=== PATIENT | female | born 1935 | race Caucasian/White ===

== ENCOUNTER 2016-06-30 14:30 | Inpatient (IN) | payer MEDICARE, OTHER ==
--- NOTE | ~2016-06-30 | EGD ---
EGD REPORT [facility] [address] [place]. [address] NAME: MEAGHAN SIMS : 37 STATUS : ADM IN PAT#: [id number] AGE: 80 ADM/REG DATE : 07/01/16 MR#: [id number] REPORT SERV DATE: 07/02/16 DICTATED BY: VITALIY LOPEZ DATE: 07/02/16 REPORT STATUS : Draft TRANSCRIBED BY: [facility] DATE: 07/02/16 Endoscopy Center Patient Name: Meaghan Sims Date of : 1935 Attending MD: VITALIY LOPEZ MD Procedure Date No Time: 07/02/2016 Procedure: Upper GI endoscopy Indications: Heme positive stool Referring MD: KIMBERLY WARNER JR Medicines: Monitored Anesthesia Care Complications: No immediate complications. Estimated blood loss: Minimal. Procedure: Pre-Anesthesia Assessment: - ASA Grade Assessment: II - A patient with mild systemic disease. After obtaining informed consent, the endoscope was passed under direct vision. Throughout the procedure, the patient's blood pressure, pulse, and oxygen saturations were monitored continuously. The GIF [id number] was introduced through the mouth, and advanced to the second part of duodenum. The upper GI endoscopy was accomplished without difficulty. The patient tolerated the procedure well. Findings: No gross lesions were noted in the entire esophagus. Multiple small sessile polyps with no bleeding and no stigmata of recent bleeding were found in the gastric fundus and in the gastric body. Biopsies were taken with a cold forceps for histology. Estimated blood loss was minimal. Few small non-bleeding superficial gastric ulcers with no stigmata of bleeding were found in the gastric antrum. Biopsies were taken with a cold forceps for Helicobacter pylori testing. Estimated blood loss was minimal. Few non-bleeding superficial duodenal ulcers with no stigmata of bleeding were found in the duodenal bulb and in the first part of the duodenum. Biopsies were taken with a cold forceps for histology. Estimated blood loss was minimal. The cardia and gastric fundus were normal on retroflexion. The exam was otherwise without abnormality. Impression: - Multiple gastric polyps. Biopsied. - Small gastric ulcers with clean base. Biopsied. - Multiple shallow duodenal ulcers with clean base. Biopsied. EGD REPORT [address] [address] NAME: MEAGHAN SIMS : 37 STATUS : ADM IN [facility]#: [id number] AGE: 80 ADM/REG DATE : 07/01/16 MR#: [id number] REPORT SERV DATE: 07/02/16 DICTATED BY: VITALIY LOPEZ DATE: 07/02/16 REPORT STATUS : Draft TRANSCRIBED BY: [employer] DATE: 07/02/16 - The examination was otherwise normal. Recommendation: - Return patient to hospital [facility] for ongoing care. - Clear liquid diet. - No aspirin, ibuprofen, naproxen, or other non-steroidal anti-inflammatory drugs. - Use Protonix (pantoprazole) 40 mg PO BID for 6 weeks. - Await pathology results. Procedure Code(s): --- Professional --- 71076, Esophagogastroduodenoscopy, flexible, transoral; with biopsy, single or multiple Diagnosis Code(s): --- Professional --- K31.7, Polyp of stomach and duodenum K25.9, Gastric ulcer, unspecified as acute or chronic, without hemorrhage or perforation K26.9, Duodenal ulcer, unspecified as acute or chronic, without hemorrhage or perforation R19.5, Other fecal abnormalities CPT copyright 2013 [employer]. All rights reserved. The codes documented in this report are preliminary and upon metal machinist review may be revised to meet current compliance requirements. Vitaliy Lopez MD VITALIY LOPEZ MD 07/02/2016 8:14 AM This report has been signed electronically. Number of Addenda: 0 Note Initiated On: 07/02/2016 7:38 AM Scope Withdrawal Time 0 hours 0 minutes 0 seconds [address] [address]
--- NOTE | ~2016-06-30 | DS ---
Discharge Summary [facility] [address] [place]. [address] NAME: CLEMENTINE BEAVER : 37 STATUS : ADM IN PAT#: [id number] AGE: 80 ADM/REG DATE : 07/01/16 MR#: [id number] REPORT SERV DATE: 07/05/16 DICTATED BY: JACKIE ALEMAN DATE: 07/05/16 REPORT STATUS : Draft TRANSCRIBED BY: YARI DATE: 07/05/16 ADMISSION DATE: 07/01/2016 DISCHARGE DATE: DIAGNOSES: 1. Gastrointestinal bleed. 2. Acute blood loss anemia secondary to gastrointestinal bleed. 3. Peptic ulcer disease. 4. Osteoarthritis with right hip pain. 5. Hypertension. 6. Debility. FOLLOWUP: The patient should follow up with her primary care physician in one to two weeks after rehab and to follow up with Dr. Greer, GI physician, in three to four weeks. PROCEDURES: EGD with multiple gastric polyps biopsied. Small gastric ulcers with clean base and multiple shallow duodenal ulcers with clean base. DISCHARGE MEDICATIONS: Caltrate + D 600 mg p.o. daily; Imdur ER 60 mg p.o. daily, hold for systolic pressures less than 130; Protonix 40 mg p.o. b.i.d. for six weeks per GI; hydralazine 25 mg p.o. t.i.d., hold for systolic pressure less than 120; Montara 5/325 one tab p.o. q.4 hours p.r.n.; Zofran 4 mg p.o. q.4 hours p.r.n.; tramadol 50 mg p.o. q.6 hours p.r.n.; Voltaren gel topically to right femur q.6 hours p.r.n. HOSPITALISTS: Dr. José Miguel Jay, Dr. Martell, and Dr. Aleman. HOSPITAL COURSE: A 80 years old female with a past medical history of osteoporosis and osteoarthritis, who presented with a two- to three-week history of right hip pain that radiated to her right knee. She denied any erythema. No fever or chills. No new rashes. She was worked up at [facility], for which the patient underwent a CAT scan that was unremarkable. Therefore, she presented to [facility] ER for unresolved symptoms and found to have a hemoglobin of 8.0, lower than her baseline. The patient was taking multiple anti- inflammatories orally for her pain. She was admitted to the Hospitalist Service and cared for by Dr. Martell initially with a GI consultation for acute blood loss anemia secondary to GI loss. The patient did require approximately 2 units of packed red blood cells during her hospital course. She did not have any complaints of abdominal pain. She did continue to have right femur pain, for which she did have a repeat CT at that point that only revealed some mild right hip joint narrowing with degenerative joint disease. There were no signs of fracture. No osteonecrosis. Also, there was no fracture of the femur. Had some signs of osteoarthritis. The patient was treated supportively. She did have some improvement at discharge and able to ambulate, but still requiring pain medications at the time of discharge. The patient also was educated on refraining from oral anti- inflammatories due to her peptic ulcer disease. Also, the patient required management for hypertension. Blood pressure was better improved at the time of discharge. Also, hemoglobin was 10.4 at the time of discharge. The patient should follow up with her primary care physician and GI as an outpatient. The patient was clinically stable for discharge. Discharge Summary [address] [address] NAME: CLEMENTINE BEAVER : 37 STATUS : ADM IN [facility]#: [id number] AGE: 80 ADM/REG DATE : 07/01/16 MR#: [id number] REPORT SERV DATE: 07/05/16 DICTATED BY: JACKIE ALEMAN DATE: 07/05/16 REPORT STATUS : Draft TRANSCRIBED BY: YARI DATE: 07/05/16 [facility] MARYVALE/YARI Jackie Aleman M.D. / [id number] CC: Arabella Soliman Jr., M.D. William M. Cooney, MD
--- NOTE | ~2016-06-30 | CN ---
Consultation Report [facility] [id number] [place]. [address] NAME: MEAGHAN SIMS : 37 STATUS : ADM IN PAT#: [id number] AGE: 80 ADM/REG DATE : 07/01/16 MR#: [id number] REPORT SERV DATE: 07/02/16 DICTATED BY: QUYEN DELGADO DATE: 07/01/16 REPORT STATUS : Draft TRANSCRIBED BY: MODL DATE: 07/01/16 CONSULTATION NOTE DATE OF CONSULTATION: REASON FOR CONSULTATION: Anemia and heme-positive stool. HISTORY OF PRESENT ILLNESS: The patient is Ms. Meaghan Sims who is a 80-year-old white female, who has not been seen by primary care doctor in years, has actually had complaints of right lower extremity pain and that caused her to come to the emergency room. She was evaluated and found to be severely anemic. We are asked to see her in consultation and apparently is Hemoccult positive also. The patient denies any melena, hematochezia, has noted back pain and also right lower extremity pain. She was found to be Hemoccult positive. She does take aspirin and has also been taken ibuprofen. PAST MEDICAL HISTORY: Includes osteoporosis. PAST SURGICAL HISTORY: Includes kyphoplasty, corneal transplant, and cataract surgery. FAMILY HISTORY: Noncontributory. REVIEW OF SYSTEMS: A 10-point review of systems otherwise negative. MEDICATIONS: Aspirin, Biotin, calcium, gluten, and tramadol. ALLERGIES: AMOXICILLIN. HABITS: No drugs, alcohol, or tobacco. PHYSICAL EXAMINATION: HEENT: Normocephalic, atraumatic. Extraocular muscles are intact. HEART: Regular without murmur. LUNGS: Clear to auscultation bilaterally without rales or rhonchi. ABDOMEN: Soft, nontender, and nondistended. Normoactive bowel sounds present. EXTREMITIES: No cyanosis or clubbing. There is little bit edema. LABORATORY DATA: Sodium 135, potassium 4.4, chloride 96, CO2 is 29, BUN 20, creatinine 1.1, glucose 134, LFTs normal. Iron levels were normal. White count 5.7, hemoglobin 7.6, hematocrit 23, platelet count 157, MCV is 104. IMPRESSION: 1. Macrocytic anemia. 2. Heme-positive stool. Consultation Report [facility] [address] [place]. [address] NAME: MEAGHAN SIMS : 37 STATUS : ADM IN PAT#: [id number] AGE: 80 ADM/REG DATE : 07/01/16 MR#: [id number] REPORT SERV DATE: 07/02/16 DICTATED BY: QUYEN DELGADO DATE: 07/01/16 REPORT STATUS : Draft TRANSCRIBED BY: MODL DATE: 07/01/16 3. Right lower extremity pain. RECOMMENDATION: 1. Monitor hemoglobin and hematocrit. 2. Transfuse as needed. Transfusion parameters will be written. 3. Check B12 and folate level. PLAN: Panendoscopy, on aspirin, NSAIDs, and heme-positive. Risks and benefits of EGD as well as possible complications of bleeding, infection, perforation, or allergic reaction to the medicine were described. Questions entertained and answered. The patient understands and agrees to proceed. ROSA/YARI Quyen Delgado M.D. / [id number] CC: Arabella Blake Jr., M.D.
--- NOTE | ~2016-06-30 | HP ---
History And Physical [facility] [address] [facility] [address] [place]. [address] NAME: CLEMENTINE SIMS : 37 STATUS : ADM Emery PAT#: [id number] AGE: 80 ADM/REG DATE : 06/30/16 MR#: [id number] REPORT SERV DATE: 06/30/16 DICTATED BY: QUYEN DUNN DATE: 06/30/16 REPORT STATUS : Draft TRANSCRIBED BY: MODRegla DATE: 06/30/16 DATE OF ADMISSION: 06/30/2016 POINT OF ENTRY: [facility] Emergency Department. CHIEF COMPLAINT: Right hip pain. HISTORY OF PRESENT ILLNESS: Ms. Sims is a 80-year-old female with no significant previous medical history other than osteoarthritis and osteoporosis, who presents to the emergency department today with progressive worsening right hip pain with radiation to her knee. The patient states that for the past two to three weeks she has had progressive worsening right hip pain with radiation to her knee. The pain is primarily located over the lateral aspect of her upper thigh and it radiates to her knee. It is not tender on palpation or tender with rest. It is mainly noted with ambulation or movement of the right lower extremity. The patient also occasionally will notice that some of the pain will radiate to her lower back as well as her left hip region. She was seen at [facility] Emergency Department last Saturday night where she reportedly underwent a CT scan that was largely unremarkable except for some diverticulosis and was discharged home on Flexeril, Lortab, as well as naproxen. The patient states that these medications were not working, so she sought Mr. Morales in clinic sometime this week and was given a prescription for tramadol. Initial evaluation in the emergency department notable for a plain films of the hip that were largely unremarkable. Labs notable for hemoglobin of 8.0, occult stool was positive. She was subsequently admitted to the Hospitalist Service for further evaluation and management. She denies any history of GI bleed in the past. Last GI evaluation was a flex sig about 13 years ago and reportedly was unremarkable. She denies any history of melena, hematochezia, hemoptysis, or hematemesis. She does take aspirin at home on a regular basis as well as has been taking some high dose ibuprofen as well as the prescribed naproxen for the past two to three weeks for this above-mentioned hip pain. REVIEW OF SYSTEMS: Comprehensive review of systems otherwise negative unless listed in history of present illness. PREVIOUS MEDICAL HISTORY: 1. Osteoarthritis. 2. Osteoporosis. SURGICAL HISTORY: 1. Kyphoplasty this past Saturday at an outpatient [facility] here in [place]. 2. Corneal transplant. History And Physical [facility] [address] [place]. [address] NAME: CLEMENTINE SIMS : 37 STATUS : ADM Emery PAT#: [id number] AGE: 80 ADM/REG DATE : 06/30/16 MR#: [id number] REPORT SERV DATE: 06/30/16 DICTATED BY: QUYEN DUNN DATE: 06/30/16 REPORT STATUS : Draft TRANSCRIBED BY: YARI DATE: 06/30/16 3. Cataract surgery. 4. Ankle fibroid tumor removal. ALLERGIES: AMOXICILLIN. HOME MEDICATIONS: 1. Aspirin 81 mg every other day. 2. Biotin 1 tab daily. 3. Os-Cristóbal with vitamin D 500 mg daily. 4. Lutein 1 tab daily. 5. Tramadol 50 mg q.6 hours p.r.n. SOCIAL HISTORY: Denies any tobacco, alcohol, or illicits. FAMILY MEDICAL HISTORY: Mother with history of congestive heart failure. Father with prostate cancer. Sibling with diabetes. LABS AND IMAGIN. White count 5.7, hemoglobin is 8.0, hematocrit 24.5, platelet count is 157, MCV is 103.8. 2. Sodium is 135, potassium 3.9, chloride 96, carbon dioxide 28, BUN 20, creatinine 0.98, glucose is 94, calcium is 9.1, protein 7.9, albumin 3.0, bilirubin is 0.4, ALT is 18, AST 26, and alkaline phosphatase is 76. 3. CRP is 11.7. 4. Occult stool is positive. 5. EKG per my review is normal sinus rhythm with no evidence of any acute ischemia or infarction. Does show early LVH changes. PHYSICAL EXAMINATION: VITAL SIGNS: Temperature is 98.6 degrees Fahrenheit, pulse is 66, respirations 16, saturating 94% on room air. Blood pressure 164/65. GENERAL: The patient is awake, alert, in no acute distress. Resting comfortably in bed. She is a well-developed, well-nourished, elderly female. HEENT: Atraumatic and normocephalic. Moist mucous membranes. Pupils are equal, round, and reactive to light and accommodation. Extraocular eye movements are intact. No scleral icterus. She does have some pale oral mucosa and conjunctival mucosa. NECK: No jugular venous distention or carotid bruits. CARDIAC: Regular rate and rhythm. No murmurs or gallops. Normal S1, S2. LUNGS: Clear to auscultation bilaterally. No wheezes, rhonchi, or crackles. ABDOMEN: Soft, nontender, nondistended. Good bowel sounds. No rebound, guarding, or rigidity. EXTREMITIES: Warm, perfused. No cyanosis, clubbing, or edema. MUSCULOSKELETAL: There is no tenderness on palpation over the right hip joint or the right knee. There is no palpable effusion either. Strength is intact in the right lower extremity. SKIN: Warm and dry. PSYCH: Affect appropriate. History And Physical [address] [address] NAME: CLEMENTINE SIMS : 37 STATUS : ADM Emery PAT#: [id number] AGE: 80 ADM/REG DATE : 06/30/16 MR#: [id number] REPORT SERV DATE: 06/30/16 DICTATED BY: QUYEN DUNN DATE: 06/30/16 REPORT STATUS : Draft TRANSCRIBED BY: YARI DATE: 06/30/16 NEURO: Alert and oriented x3. Cranial nerves 2 through 12 grossly intact. Speech is normal. Gait not assessed. ASSESSMENT: Ms. Sims is a 80-year-old female who presents with a two to three-week history of progressive worsening right hip pain with radiation to the knee who incidentally is also found to have anemia with an occult positive stool. PROBLEM LIST: 1. Right hip pain, likely iliotibial band syndrome. 2. Anemia. 3. Occult positive stool. PLAN: 1. Anemia. We have no prior baseline for comparison, but she does have occult positive stools likely secondary to her aspirin as well as recent NSAID use. We will discontinue all these medications. Place the patient on a Protonix drip. Check q.6 hours hemoglobin and hematocrits. Transfuse if hemoglobin less than 7. We will consult Gastroenterology for further evaluation. 2. Right hip pain. Based on description of symptoms as well as examination, I suspect patient has IT band syndrome, which we will treat here with low-dose narcotics as she is unable to take any anti-inflammatory secondary to GI bleed. The patient does have an orthopedic surgeon in the community, Dr. Haynes, who performed her kyphoplasty earlier this week. She also recently had CT evaluation of the hip region at [facility], which we will try to obtain those records. I think that further workup and treatment can be deferred to the patient's primary orthopedic surgeon upon discharge. 3. DVT prophylaxis. STEPHANIE's and SCD's given occult positive stool. CODE STATUS: The patient wished to be full code. JCB/MODL Quyen Dunn MD / [id number] CC: MD Nolberto Miller Jr., M.D.
[2016-06-30 15:56] LABS: HEMATOCRIT 24.3 % (36.0-48.0); MEAN CORPUS HGB CONC 32.9 g/dL (32.0-36.0); MEAN CORPUSCULAR HEMOGLOB 34.2 pg (26.0-34.0); MEAN CORPUSCULAR VOLUME 103.8 fL (80-100); MEAN PLATELET VOLUME 9.2 fL (9.2-13.0); PLATELET COUNT 157 10/3/uL (150-400); RBC DISTRIBUTION WIDTH 16.1 % (12.0-16.0); RED CELL COUNT 2.34 10/6/uL (4.0-5.6); WHITE BLOOD CELLS 5.7 10/3/uL (4.5-10.5)
[2016-06-30 16:07] LABS: C-REACTIVE PROTEIN 11.7 MG/L (<8.0)
[2016-06-30 16:50] LABS: DIFFERENTIAL ORDERED N
[2016-06-30 19:55] LABS: A/G RATIO 0.6 (0.7-1.9); ALKALINE PHOSPHATASE 76 U/L (45-117); BUN (BLOOD UREA NITROGEN) 20 MG/DL (6-23); CALCIUM, SERUM 9.1 MG/DL (8.5-10.4); CHLORIDE, SERUM 96 MMOL/L (96-112); CO2 (CARBON DIOXIDE) 28 MMOL/L (24-34); CREATININE 0.98 MG/DL (0.55-1.02); GFR AFRICAN AMERICAN 64 ML/MIN (>=60); GFR NON AFRICAN AMERICAN 55 ML/MIN (>=60); GLOBULIN 4.8 G/DL (2.5-4.1); GLUCOSE, SERUM 94 MG/DL (60-99); POTASSIUM, SERUM 3.9 MMOL/L (3.5-5.3); SGOT(AST) 26 U/L (5-40); SGPT(ALT) 18 U/L (5-65); SODIUM, SERUM 135 MMOL/L (135-148); TOTAL BILIRUBIN 0.4 MG/DL (0-1.2); TOTAL PROTEIN 7.8 G/DL (6.0-8.5)
[2016-06-30] MEDS ORDERED: OS500+D PO (20:51)
[2016-06-30] MEDS ORDERED: HALF81 PO (20:51)
[2016-06-30] MEDS ORDERED: HARD NAILS PO (20:51)
[2016-06-30] MEDS ORDERED: ULTRAM50 PO (20:51)
[2016-06-30] MEDS ORDERED: LUTEIN PO (20:51)
[2016-06-30 22:07] LABS: INTERNATIONAL NORMAL RATI 1.3 UNITS (-); PARTIAL THROMBO TIME 31.2 SEC (22.5-37.2); PROTIME (NOT ORD) 16.1 SEC (12.0-14.5)
[2016-07-01 01:35] LABS: HEMATOCRIT 23.9 % (36.0-48.0)
[2016-07-01 01:58] LABS: A/G RATIO 0.6 (0.7-1.9); ALBUMIN 2.8 G/DL (3.5-5.0); ALKALINE PHOSPHATASE 72 U/L (45-117); BUN (BLOOD UREA NITROGEN) 20 MG/DL (6-23); CHLORIDE, SERUM 96 MMOL/L (96-112); CO2 (CARBON DIOXIDE) 29 MMOL/L (24-34); FERRITIN 354 NG/ML (8-252); FREE T4 1.25 NG/DL (0.76-1.46); GFR AFRICAN AMERICAN 56 ML/MIN (>=60); GFR NON AFRICAN AMERICAN 48 ML/MIN (>=60); GLOBULIN 4.5 G/DL (2.5-4.1); IRON BINDING CAPACITY 307 MCG/DL (225-410); IRON, SERUM 48 MCG/DL (35-150); POTASSIUM, SERUM 4.4 MMOL/L (3.5-5.3); SGOT(AST) 24 U/L (5-40); SGPT(ALT) 16 U/L (5-65); SODIUM, SERUM 135 MMOL/L (135-148); TOTAL BILIRUBIN 0.5 MG/DL (0-1.2); TOTAL PROTEIN 7.3 G/DL (6.0-8.5); ULTRASENSITIVE TSH 0.987 MCIU/ML (0.358-3.740)
[2016-07-01 01:59] LABS: GLUCOSE, SERUM 134 MG/DL (60-99)
[2016-07-01 07:41] LABS: HEMATOCRIT 23.5 % (36.0-48.0); HEMOGLOBIN 7.9 g/dL (12.0-16.0)
[2016-07-01 15:27] LABS: HEMOGLOBIN 7.6 g/dL (12.0-16.0)
[2016-07-01 15:57] LABS: FOLATE 16.9 NG/ML (>5.2)
[2016-07-01 21:25] LABS: ASCORBIC ACID (UR NOT ORDER) NEG (NEG); BILIRUBIN, URINE NEGATIVE (NEG); KETONE, URINE NEGATIVE (NEG); LEUKOCYTE ESTERASE(NOT OR TRACE (NEG); WBC (NOT ORDERED) (RFLEX) 4 (0-5)
[2016-07-02 10:50] LABS: BASOPHILS 0.3 %; BASOPHILS ABSOLUTE 0.02 10/3/uL (0.0-0.16); EOSINOPHILS 0.3 %; EOSINOPHILS ABSOLUTE 0.02 10/3/uL (0.0-0.53); IMMATURE GRANULOCYTES 0.8 %; IMMATURE GRANULOCYTES ABSOLUTE 0.05 10/3/uL (0.0-0.11); INTERNATIONAL NORMAL RATI 1.2 UNITS (-); LYMPHOCYTES 19.1 %; LYMPHOCYTES ABSOLUTE 1.23 10/3/uL (0.67-4.30); MEAN CORPUS HGB CONC 34.3 g/dL (32.0-36.0); MEAN CORPUSCULAR HEMOGLOB 32.6 pg (26.0-34.0); MEAN PLATELET VOLUME 10.6 fL (9.2-13.0); MONOCYTES 11.8 %; MONOCYTES ABSOLUTE 0.76 10/3/uL (0.21-1.20); NEUTROPHILS 67.7 %; NEUTROPHILS ABSOLUTE 4.36 10/3/uL (2.02-8.40); PARTIAL THROMBO TIME 29.8 SEC (22.5-37.2); PLATELET COUNT 136 10/3/uL (150-400); PROTIME (NOT ORD) 15.5 SEC (12.0-14.5); RBC DISTRIBUTION WIDTH 18.8 % (12.0-16.0); WHITE BLOOD CELLS 6.4 10/3/uL (4.5-10.5)
[2016-07-02 10:51] LABS: HEMOGLOBIN 10.3 g/dL (12.0-16.0); RED CELL COUNT 3.16 10/6/uL (4.0-5.6)
[2016-07-02 10:52] LABS: MANUAL DIFF NO %; MEAN CORPUSCULAR VOLUME 94.9 fL (80-100)
[2016-07-02 13:00] LABS: BUN (BLOOD UREA NITROGEN) 20 MG/DL (6-23); CALCIUM, SERUM 8.7 MG/DL (8.5-10.4); CHLORIDE, SERUM 101 MMOL/L (96-112); CO2 (CARBON DIOXIDE) 27 MMOL/L (24-34); CREATININE 1.05 MG/DL (0.55-1.02); GFR AFRICAN AMERICAN 59 ML/MIN (>=60); GFR NON AFRICAN AMERICAN 51 ML/MIN (>=60); POTASSIUM, SERUM 3.9 MMOL/L (3.5-5.3); SODIUM, SERUM 136 MMOL/L (135-148)
[2016-07-02 13:04] LABS: GLUCOSE, SERUM 105 MG/DL (60-99)
[2016-07-03 06:14] LABS: BASOPHILS 0.2 %; BASOPHILS ABSOLUTE 0.01 10/3/uL (0.0-0.16); EOSINOPHILS 1.4 %; EOSINOPHILS ABSOLUTE 0.08 10/3/uL (0.0-0.53); HEMATOCRIT 30.2 % (36.0-48.0); HEMOGLOBIN 10.4 g/dL (12.0-16.0); IMMATURE GRANULOCYTES 1.4 %; IMMATURE GRANULOCYTES ABSOLUTE 0.08 10/3/uL (0.0-0.11); LYMPHOCYTES 22.7 %; LYMPHOCYTES ABSOLUTE 1.34 10/3/uL (0.67-4.30); MANUAL DIFF NO %; MEAN CORPUS HGB CONC 34.4 g/dL (32.0-36.0); MEAN CORPUSCULAR HEMOGLOB 33.9 pg (26.0-34.0); MEAN CORPUSCULAR VOLUME 98.4 fL (80-100); MEAN PLATELET VOLUME 9.9 fL (9.2-13.0); MONOCYTES 11.2 %; MONOCYTES ABSOLUTE 0.66 10/3/uL (0.21-1.20); NEUTROPHILS 63.1 %; NEUTROPHILS ABSOLUTE 3.73 10/3/uL (2.02-8.40); PLATELET COUNT 147 10/3/uL (150-400); RBC DISTRIBUTION WIDTH 18.3 % (12.0-16.0); RED CELL COUNT 3.07 10/6/uL (4.0-5.6); WHITE BLOOD CELLS 5.9 10/3/uL (4.5-10.5)
[2016-07-03 06:22] LABS: BUN (BLOOD UREA NITROGEN) 15 MG/DL (6-23); CHLORIDE, SERUM 98 MMOL/L (96-112); CO2 (CARBON DIOXIDE) 27 MMOL/L (24-34); CREATININE 0.94 MG/DL (0.55-1.02); GFR AFRICAN AMERICAN 67 ML/MIN (>=60); GFR NON AFRICAN AMERICAN 58 ML/MIN (>=60); GLUCOSE, SERUM 79 MG/DL (60-99); POTASSIUM, SERUM 3.6 MMOL/L (3.5-5.3); SODIUM, SERUM 135 MMOL/L (135-148)
[2016-07-04 07:08] LABS: BUN (BLOOD UREA NITROGEN) 15 MG/DL (6-23); CALCIUM, SERUM 8.6 MG/DL (8.5-10.4); CHLORIDE, SERUM 97 MMOL/L (96-112); CO2 (CARBON DIOXIDE) 23 MMOL/L (24-34); CREATININE 0.76 MG/DL (0.55-1.02); GFR AFRICAN AMERICAN 87 ML/MIN (>=60); GFR NON AFRICAN AMERICAN 75 ML/MIN (>=60); GLUCOSE, SERUM 90 MG/DL (60-99); POTASSIUM, SERUM 3.9 MMOL/L (3.5-5.3); SODIUM, SERUM 131 MMOL/L (135-148)
[2016-12-20] MEDS ORDERED: PRIN20 PO (22:35)
[2016-12-20] MEDS ORDERED: REVLIMID10 MG PO (22:35)
[2016-12-20] MEDS ORDERED: PCET PO (22:36)
[2016-12-20] MEDS ORDERED: OXYCON10 PO (22:36)
[2016-12-20] MEDS ORDERED: BUSPAR5 PO (22:36)
[2016-12-20] MEDS ORDERED: PROTONIX PO (22:37)
[2016-12-20] MEDS ORDERED: VOLTAREN1 % TOP (22:37)
[2016-12-20] MEDS ORDERED: MULTIVIT/MIN PO (22:37)
== END 2016-07-05 22:15 | disposition home or self-care (01) | DRG 378 ==
LOC: ER 14:30 → CDU1 21:36 → 5NO 22:01
PROVIDERS: Emergency Medicine; Internal Medicine; Internal Medicine Gastroenterology; Physician Assistant
PROC: 0DB98ZX Excision of Duodenum, Via Natural or Artificial Opening Endoscopic, Diagnostic (ICD-10-PCS; 2016-07-02)
PROC: 30233N1 Transfusion of Nonautologous Red Blood Cells into Peripheral Vein, Percutaneous Approach (ICD-10-PCS; 2016-07-02)
PROC: 0DB68ZX Excision of Stomach, Via Natural or Artificial Opening Endoscopic, Diagnostic (ICD-10-PCS; principal; 2016-07-02 07:56)
DX: K92.2 Gastrointestinal hemorrhage, unspecified (principal); D62 Acute posthemorrhagic anemia; K25.9 Gastric ulcer, unspecified as acute or chronic, without hemorrhage or perforation; M76.31 Iliotibial band syndrome, right leg; K26.9 Duodenal ulcer, unspecified as acute or chronic, without hemorrhage or perforation; M19.90 Unspecified osteoarthritis, unspecified site; Z88.1 Allergy status to other antibiotic agents; Z79.82 Long term (current) use of aspirin; Z79.899 Other long term (current) drug therapy; Z82.49 Family history of ischemic heart disease and other diseases of the circulatory system; Z80.42 Family history of malignant neoplasm of prostate; Z83.3 Family history of diabetes mellitus; K31.7 Polyp of stomach and duodenum; M81.0 Age-related osteoporosis without current pathological fracture; I10 Essential (primary) hypertension
CPT/HCPCS: 36415; 71010; 73502-RT; 73552-RT; 73700-RT; 80048; 80053; 81001; 82607; 82728; 82746; 83540; 83550; 83735; 84439; 84443; 85007; 85014; 85018; 85025; 85027; 85379; 85610; 85730; 86140; 86850; 86900; 86901; 86920; 88305; 93005; 93970; 96372; 97162-GP; 99285; A9270-GY; C9113; G8978-CL-GP; G8979-CK-GP; J0360; J1885; J2405; P9016

== ENCOUNTER 2016-08-17 09:40 | Inpatient (IN) | payer MEDICARE, OTHER ==
--- NOTE | ~2016-08-17 | DS ---
Discharge Summary [facility] [address] [facility] [place]. [address] NAME: CLEMENTINE BEAVER : 37 STATUS : DIS IN PAT#: [id number] AGE: 80 ADM/REG DATE : 08/17/16 MR#: [id number] REPORT SERV DATE: 08/29/16 DICTATED BY: ROBINSON FLORES DATE: 08/28/16 REPORT STATUS : Draft TRANSCRIBED BY: MODL DATE: 08/28/16 ADMISSION DATE: 08/17/2016 DISCHARGE DATE: 08/28/2016 DISCHARGE DIAGNOSES: 1. Intractable back pain with L2 stenosis, status post L1-L3 laminectomy performed on 08/24/2016. 2. Multiple myeloma, new diagnosis. 3. Debility. 4. Acute on chronic anemia with component of acute blood loss. 5. Transient confusion, resolved. DISCHARGE MEDICATIONS: Decadron 20 mg daily for 4 days, stop on 08/30; Imdur 60 mg daily; multivitamin 1 tablet daily; Protonix 40 mg twice a day; MiraLax one packet daily; Tylenol 650 mg every four hours p.r.n.; Mylanta 30 mL p.r.n.; Dulcolax 10 mg p.r.n.; Flexeril 10 mg every eight hours p.r.n.; milk of Mag p.r.n.; Zofran 4 mg every four hours p.r.n. for nausea; Percocet 5/325 one tablet every four hours p.r.n. for pain; Voltaren gel apply topically 4 times a day. BRIEF HPI: 80-year-old white female presented with worsening and intractable low-back pain. Please see initial H and P of Dr. Sb Swartz. The patient is admitted to the Hospitalist Service for further evaluation and treatment. CONSULTS DURING THIS ADMISSION: Include Ortho Spine, Sean Mitchell DO, [facility], Ita Ramsey M.D. Please also see the interim discharge summary of NICKI Sanchez, as this discharge summary will simply cover the dates of 08/28/2016. The patient had been pending approval for [facility] for continued rehab postoperatively, and she became approved for transfer on 08/28/2016. Her pain was better controlled. Her transient confusion was resolved, and she was looking forward to transfer to rehab. She will be following up with Dr. Ita Ramsey as an outpatient once discharged from rehab for treatment of her new diagnosis of multiple myeloma and follow up with Dr. Mitchell as indicated as well. I appreciate the help of the consultants on this patient's admission. TRINITY/YARI Robinson Flores NP / [id number] CC: Arabella Chau
--- NOTE | ~2016-08-17 | CN ---
Consultation Report [facility] [address] [place]. [address] NAME: CLEMENTINE BEAVER : 39 STATUS : ADM IN PAT#: [id number] AGE: 80 ADM/REG DATE : 08/17/16 MR#: [id number] REPORT SERV DATE: 08/20/16 DICTATED BY: SEAN MITCHELL DATE: 08/20/16 REPORT STATUS : Draft TRANSCRIBED BY: MODRegla DATE: 08/20/16 INPATIENT SPINE SURGERY CONSULTATION DATE OF CONSULTATION: 08/20/2016 REASON FOR CONSULTATION: Intractable back pain. HISTORY OF PRESENT ILLNESS: The patient is a pleasant 80-year-old, who has had a previous kyphoplasty on 06/15/2016 at the L2 level for acute compression fracture. She had some improvement with pain on that, and was eventually admitted at [facility], but continues to have rather intractable back pain and right hip and buttock pain. She has difficulty with moving, and unable to ambulate well secondary to severe pain. REVIEW OF SYSTEMS: She denies any chest pain, shortness of breath, and bowel or bladder changes. FAMILY HISTORY: Noncontributory. PAST MEDICAL HISTORY: Osteoporosis, degenerative joint disease, anemia, and hypertension. PHYSICAL EXAMINATION: GENERAL: The patient is healthy appearing, in no acute distress as long as she is resting comfortably, but has significant increase in pain with motion. PSYCH: She is alert and oriented x3. Normal mood and affect. Gait was not tested. NEUROLOGIC: Strength in lower extremities remains intact with 5/5 motor strength to the hip flexors, hamstrings, quadriceps, tibialis anterior, EHL, gastroc soleus, and peroneals. IMAGING: I have reviewed the CT scan of the lumbar spine. She does have previous L2 kyphoplasty with a good placement of cement. There is retropulsion of the posterior vertebral body fragment into the canal with spinal stenosis and nerve compression, and she has generalized degenerative disk disease throughout the lumbar spine. ASSESSMENT: Intractable back and right buttock pain, and gait disturbance due to intractable pain. Lumbar spinal stenosis at the L2 level. PLAN: I had a long discussion with the patient regarding various options. She can continue on with nonoperative care in rehab, and pain control. She can consider a right-sided L1-L2 epidural steroid injection, and final option would be L1-L3 laminectomy and posterior instrumented fusion. I have gone over the risks and benefits of that with her, she understands, she is going to consider all three of the options, and will let us know how she would like to proceed. Consultation Report [facility] [address] [address] NAME: CLEMENTINE BEAVER : 37 STATUS : ADM IN PAT#: [id number] AGE: 80 ADM/REG DATE : 08/17/16 MR#: [id number] REPORT SERV DATE: 08/20/16 DICTATED BY: SEAN MITCHELL DATE: 08/20/16 REPORT STATUS : Draft TRANSCRIBED BY: MODRegla DATE: 08/20/16 IDALMIS/YARI Sean Mitchell, / [id number] CC: Arabella Soliman
--- NOTE | ~2016-08-17 | IDS ---
Interim Discharge Summary [id number] [place]. [address] NAME: CLEMENTINE BEAVER : 39 STATUS : ADM IN PAT#: [id number] AGE: 80 ADM/REG DATE : 08/17/16 MR#: [id number] REPORT SERV DATE: 08/28/16 DICTATED BY: DATE: REPORT STATUS : Draft TRANSCRIBED BY: MODL DATE: 08/27/16 ADMISSION DATE: 08/17/2016 DISCHARGE DATE: DATE OF DISCHARGE: Within next 48 hours. Interim summary covers dates of service between 08/17/2016 and 08/27/2016. INTERIM DIAGNOSES: 1. Transient confusion, resolved. 2. Multiple myeloma, new diagnosis. 3. Debility. 4. Status post L1 through L3 laminectomy. 5. Gray catheter/trial of voiding. 6. Chronic anemia/acute blood loss anemia. CONSULTATIONS: 1. Dr. Sean Mitchell, Orthopedics. 2. Dr. Ita Ramsey, Oncology. CHIEF COMPLAINT UPON ADMISSION: Low back pain, intractable. HOSPITAL COURSE: Briefly, the patient is a 80-year-old female who has had persistent low back pain since 05/2015. The patient was diagnosed with compression fracture of L2 and underwent kyphoplasty in 05/2015. Since that time, she has had intractable low back pain. The patient was sent to rehabilitation and physical therapy status post kyphoplasty, and she stayed at [facility] for rehabilitation for about a month. The patient was home for several days after discharge from rehabilitation when back pain became unbearable. The patient presented to the emergency room for further evaluation and treatment. CT scan of the lumbar spine obtained during the emergency department visit reported compression fracture of L2 with kyphoplasty. Posterior protrusion of upper vertebral body margin, resulting in spinal canal not narrowing. No lumbar spine imaging exams were available for comparison since 06/15/2016. The patient was admitted to the hospitalist service for intractable low back pain, acute on chronic. There was also concern for possible multiple myeloma in the setting of acute on chronic intractable back pain. For workup of the anemia and elevated globulin, the patient had serum protein electrophoresis, which revealed an M-spike of 1.6 with immediate fixation revealing IgG lambda. The patient was also noted to have IgG lambda in her urine. A bone marrow biopsy was performed, which revealed multiple myeloma with approximately 80% plasma cells. Interim Discharge Summary [id number] [place]. [address] NAME: CLEMENTINE BEAVER : 37 STATUS : ADM IN PAT#: [id number] AGE: 80 ADM/REG DATE : 08/17/16 MR#: [id number] REPORT SERV DATE: 08/28/16 DICTATED BY: DATE: REPORT STATUS : Draft TRANSCRIBED BY: MODL DATE: 08/27/16 Dr. Ita Ramsey, [facility], was consulted. The patient will continue to follow Dr. Ita Ramsey as an outpatient once discharged from rehab to plan treatment for new diagnosis of multiple myeloma. 1. Transient confusion. Last night the patient presented as transiently confused, easily re-oriented; however, normal state. She is awake, alert, and oriented x3. 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 At that time, morphine was discontinued in addition to others medications known to cause sedation and confusion. Urinalysis was also obtained, which was negative for urinary tract infection. The patient is now on Percocet and without any side effects. 2. Multiple myeloma. This is a new diagnosis found during this admission. Oncology has been following. The patient started pulse dose steroids today and will continue until after rehab. At that time, the patient will begin aggressive treatment under the direction of Dr. Ita Ramsey. 3. Debility. This is secondary to compression fracture status post kyphoplasty in May 2016, now status post L1 through L3 laminectomy. The patient is to return to rehabilitation center at discharge before returning home. 4. Status post L1 through L3 laminectomy. The patient is postoperative day #3. Orthopedics signed off today releasing the patient to rehab when hospitalist arranges discharge. The patient tolerated the procedure without significant issues. Still suffering from low back pain at the surgical site, that is being managed with Percocet as needed. 5. Gray catheter. This was placed during surgery. Catheter to be removed in the early a.m. for trial of voiding. 6. Acute blood loss anemia on chronic anemia. The patient is status post 1 unit of packed red blood cells, and hemoglobin is stable at 8.5. Status post transfusion, labs will be rechecked in the morning. Chronic anemia is related to multiple myeloma. CURRENT PLAN: 1. Followup with Social Work regarding approval to [facility]. 2. The patient should be discharged within the next 48 hours. 3. The patient is to follow up with Dr. Ita Ramsey, [facility], after discharge from rehab to pursue aggressive treatment for new diagnosis of multiple myeloma. KUSHAL/YARI Suzi King NP-C / [id number] CC: MD KARTIK Randolph II, AMANDA SUZANNE
--- NOTE | ~2016-08-17 | CN ---
Consultation Report [facility] [address] [place]. [address] NAME: CLEMENTINE SIMS : 37 STATUS : ADM IN PAT#: [id number] AGE: 80 ADM/REG DATE : 08/17/16 MR#: [id number] REPORT SERV DATE: 08/24/16 DICTATED BY: CHRISTIANO RAMSEY DATE: 08/23/16 REPORT STATUS : Draft TRANSCRIBED BY: MODL DATE: 08/23/16 DATE OF CONSULTATION: REASON FOR CONSULTATION: Recently diagnosed multiple myeloma. HISTORY: Ms. Sims is a very pleasant, 80-year-old, who had avoided seeing a primary care doctor for approximately 10 years until May when she began to have increasing back pain. Initially, she was treated with a kyphoplasty with relief, but then the pain worsened. She was readmitted to the hospital for further evaluation on August 17. At the time of admission, she was noted to be anemic with a hemoglobin of 9.6, with a slightly elevated globulin of 5.1. Imaging revealed back pain likely from nerve impingement and some bone pieces from the kyphoplasty and she plans to have a laminectomy tomorrow. For workup of the anemia and elevated globulin, she had a serum protein electrophoresis done, which revealed an M-spike of 1.6 with immediate fixation revealing IgG lambda. She is also noted to have IgG lambda in her urine. A bone marrow biopsy was performed earlier today and Dr. Keith Wallace, called that the bone marrow revealed multiple myeloma with approximately 80% plasma cells. Currently, Ms. Sims has discomfort at the site of the prior kyphoplasty, but denies any nausea, vomiting, chest pain, shortness of breath, or peripheral neuropathy. PAST MEDICAL HISTORY: Significant for really no other medical problems. She said that she had a fibroid tumor removed from her ankle as a teenager. 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 SOCIAL HISTORY: She is single. Lives alone. She is a never smoker. Never drinker. 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 She has a cousin who lives near by. FAMILY HISTORY: She states that her father of prostate cancer at age 68 and her grandmother had kidney failure. REVIEW OF SYSTEMS: A 14-point review of systems was performed and negative except for as per HPI. PHYSICAL EXAMINATION: VITAL SIGNS: Temperature 97.8, pulse of 58, sats are 98% on room air, blood pressure is 120/60. GENERAL: She is a well-developed, well-nourished female, in mild distress secondary to back pain. HEART: Regular rate and rhythm without murmurs, gallops, or rubs. HEENT: She is normocephalic, atraumatic. Anicteric sclerae. Her oropharynx is moist. She has no palpable adenopathy in her neck. LUNGS: Again, her lungs are clear to auscultation. HEART: Regular rate, rhythm without murmur, gallop, or rub. ABDOMEN: Soft, nontender, nondistended without any organomegaly. She has a bandage over the spot where she had a bone marrow biopsy. Consultation Report [place] [address] [facility] [place]. [address] NAME: CLEMENTINE SIMS : 37 STATUS : ADM IN [facility]#: [id number] AGE: 80 ADM/REG DATE : 08/17/16 MR#: [id number] REPORT SERV DATE: 08/24/16 DICTATED BY: CHRISTIANO RAMSEY DATE: 08/23/16 REPORT STATUS : Draft TRANSCRIBED BY: YARI DATE: 08/23/16 EXTREMITIES: She moved all extremities well. She had no edema. NEURO: Exam was nonfocal. LABORATORY DATA: White count today is 2.6, hemoglobin 8.8, platelet count 131. Her calcium is 10.1, her creatinine is 0.8. Her BUN is 10. Her albumin is 2.6. Her iron studies were normal. Folate and B12 are normal. ASSESSMENT AND PLAN: Ms. Sims appears to have a newly diagnosed multiple myeloma, await her final bone marrow biopsy, but she appears to have an active myeloma versus a smoldering myeloma given her anemia. I will order additional studies to assist with staging. This myeloma was noted because she was anemic. Imaging of her back where she is having the pain did not show any lytic lesions and so I think her bone pain may be unrelated. I think this new diagnosis should not prevent her from having this surgery she needs to relieve her pain. My plan would be: 1. Proceed with laminectomy tomorrow. 2. Send beta-2 microglobulin. 3. Bone survey. 4. Would collect 24-hour urine on her. 5. I anticipate that she would go to inpatient rehab following her surgery. While she recovers from her surgery, we can treat her with intermittent steroids until she is discharged and at that point, we did discuss with her myeloma medications including Revlimid and Velcade. We will continue to follow with you. Thank you very much for the consultation. FELIX/YARI Christiano Ramsey M.D. / [id number] CC: José Miguel Almazan II, MD
--- NOTE | ~2016-08-17 | HP ---
History And Physical [address] [id number] [facility] [place]. [address] NAME: CLEMENTINE BEAVER : 39 STATUS : ADM Emery PAT#: [id number] AGE: 80 ADM/REG DATE : 08/17/16 MR#: [id number] REPORT SERV DATE: 08/17/16 DICTATED BY: TYLOR CADET DATE: 08/17/16 REPORT STATUS : Draft TRANSCRIBED BY: MODL DATE: 08/17/16 DATE OF ADMISSION: 08/17/2016 EXAMINING PHYSICIAN: Tylor Cadet M.D. REASON FOR ADMISSION: Low back pain intractable. HISTORY: This is a 80-year-old white female, who has had low back pain. It has been going on since about May. She does not have a primary care physician exactly and had presented to the emergency room here with low back pain and anemia. She was evaluated for the anemia and had EGD, was showing evidence of duodenal ulcer from the nonsteroidal anti- inflammatory agents that she is taking for the back pain; however, the back pain was not resolved. She was sent to rehabilitation and physical therapy worked on her. She did improve with her right leg pain but seemed to settle in the right hip. She went home for a few days. She was at [facility] for about a month. She is going back for physical therapy at [facility] as well and was having work done on her back with deep massage done with some bruising on the right flank area above the right buttock. She was now unable to move with stiffness in her back and she called her physical therapist who had worked on her yesterday who recommended coming to the emergency room where she has been evaluated by Anthony, nurse practitioner, in the emergency room. She had a lumbar CT scan that showed evidence of compression fracture of L2 with a kyphoplasty which was done since 06/15/2016, and posterior protrusion of the upper vertebral body margin resulting in spinal canal narrowing. There is no lumbar spine imaging available to compare prior to that time. She has degenerative disc changes with uncinate osteophyte formation and posterior annular bulging primarily L4-L5 and L3-L4 resulting in minimal bilateral foraminal narrowing. She tried to raise her head up from the stretcher and she is in extreme pain. She cannot roll. I cannot visualize the back. She was originally seen by Dr. Jay in the emergency room. She had a CT scan of her lumbar spine at [facility] or a CT scan of her abdomen that was said to have shown some diverticulosis. She has been relatively healthy throughout her snf years. She has some osteoarthritis and was known to have osteoporosis. 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 She attends the [employer] on campus at [employer]. She denies any alcohol or tobacco use or abuse. No illicit drugs. She is not . She lives by herself. Her cousin comes to take care of her from time to time. FAMILY HISTORY: Mother had osteoporosis and congestive heart failure. Father had prostate cancer, and siblings have diabetes. REVIEW OF SYSTEMS: History And Physical [address] [address] NAME: CLEMENTINE BEAVER : 39 STATUS : ADM Emery PAT#: [id number] AGE: 80 ADM/REG DATE : 08/17/16 MR#: [id number] REPORT SERV DATE: 08/17/16 DICTATED BY: TYLOR CADET DATE: 08/17/16 REPORT STATUS : Draft TRANSCRIBED BY: YARI DATE: 08/17/16 She has had no nausea or vomiting or melena, hematemesis, fits, seizures, convulsions, or unilateral weakness. She is generally incapacitated with pain from her back. She has had a MRI scan of her back at [facility]. We will try to get the reports. She had a kyphoplasty at the corner of which is likely another [facility] outlet. She has had no swelling in lower extremities. No melena or hematemesis. No fever, chills, or night sweats. No lung cancer diagnosis and no breast cancer diagnosed with metastasis. She has had no fever, chills, night sweats, melena, hematemesis, nausea, vomiting, or diarrhea. The remainder of the review of systems is negative. PHYSICAL EXAMINATION: GENERAL: Elderly white female, in no acute distress. VITAL SIGNS: Her blood pressure 140/70 with a heart rate 88, respiratory rate 16, afebrile. HEENT: EOMI. Sclerae clear. Conjunctivae pale. NECK: No bruit without any JVD. She is unable to completely flex her neck. CHEST: Clear to A and P. HEART: Regular S1, S2 without murmur, gallop, or click. BREASTS: Grossly without mass. ABDOMEN: Soft, nontender. Bowel sounds positive. EXTREMITIES: Have no edema. Distal pulses are intact, dorsalis pedis, posterior tibial. SKIN: Soft and smooth. No rash, ecchymosis, or bruising is noted within the limitations of the examination. LYMPHATICS: There is no adenopathy palpable. LABORATORY DATA: CT scan of the lumbar spine as above fairly unrevealing. Her urinalysis showed no protein, specific gravity of 1.009, pH 8, and negative dip. Her CMP showed a sodium of 135, potassium 3.9, chloride 99, creatinine 0.99, BUN 8, albumin 2.8 with albumin to globulin ratio of 0.6, globulin level of 5 with albumin of 2.8 and calcium level of 9.4, in spite of the albumin of 2.8. Review of old labs from old records indicates that she had a high CRP of 11, B12 of 745, folic acid of 16.9, and ferritin level of 354. ASSESSMENT: Low back pain, acute on chronic. I think it is reasonable to check a urine immunoelectrophoresis with elevated CRP, calcium, relative elevation and abnormal globulin to albumin ratio. I think the MRI scan may be of some help for infiltrative processes of the bones as well. We will try to get a copy of this from [facility]. PLAN: 1. I am going to go ahead and order a bone scan to see if there is a focal deficit in the back or generalized bony uptake consistent with multiple myeloma. 2. Osteoporosis generalized. 3. Degenerative joint disease. 4. Anemia. She got 2 units of packed cells during the prior hospitalization with normal anemia parameters. She does not need B12 or folic acid though she does have elevated MCV which would make me think about intramedullary inflammatory infiltrative process going on. 5. The patient is admitted to the hospital for pain control. She has had some constipation, occasional mild headaches. She has neck pain from degenerative joint History And Physical [address] [place]. [address] NAME: CLEMENTINE BEAVER DORCAS : 39 STATUS : ADM Emery PAT#: [id number] AGE: 80 ADM/REG DATE : 08/17/16 MR#: [id number] REPORT SERV DATE: 08/17/16 DICTATED BY: TYLOR CADET DATE: 08/17/16 REPORT STATUS : Draft TRANSCRIBED BY: YARI DATE: 08/17/16 disease and especially right hip pain in the past. We will see how it comes around and ask Physical Therapy to see and help with treatment as well in time. PENNY/YARI Tylor Cadet M.D. / [id number] CC: Raleigh Felipe M.D.
[~2016-08-17 09:40] MED LIST: HALF81 PO; HARD NAILS PO; LUTEIN PO; OS500+D PO; ULTRAM50 PO
[2016-08-17 09:47] LABS: BASOPHILS 0.6 %; BASOPHILS ABSOLUTE 0.02 10/3/uL (0.0-0.16); EOSINOPHILS 3.4 %; EOSINOPHILS ABSOLUTE 0.11 10/3/uL (0.0-0.53); HEMATOCRIT 22.8 % (36.0-48.0); HEMOGLOBIN 7.5 g/dL (12.0-16.0); IMMATURE GRANULOCYTES 1.2 %; IMMATURE GRANULOCYTES ABSOLUTE 0.04 10/3/uL (0.0-0.11); LYMPHOCYTES ABSOLUTE 1.13 10/3/uL (0.67-4.30); MANUAL DIFF NO %; MEAN CORPUS HGB CONC 32.9 g/dL (32.0-36.0); MEAN CORPUSCULAR HEMOGLOB 33.6 pg (26.0-34.0); MEAN CORPUSCULAR VOLUME 102.2 fL (80-100); MEAN PLATELET VOLUME 9.4 fL (9.2-13.0); MONOCYTES 17.3 %; MONOCYTES ABSOLUTE 0.56 10/3/uL (0.21-1.20); NEUTROPHILS 42.5 %; NEUTROPHILS ABSOLUTE 1.37 10/3/uL (2.02-8.40); PLATELET COUNT 159 10/3/uL (150-400); RBC DISTRIBUTION WIDTH 18.9 % (12.0-16.0); RED CELL COUNT 2.23 10/6/uL (4.0-5.6); WHITE BLOOD CELLS 3.2 10/3/uL (4.5-10.5)
[2016-08-17 09:54] LABS: INTERNATIONAL NORMAL RATI 1.3 UNITS (-); PARTIAL THROMBO TIME 30.9 SEC (22.5-37.2); PROTIME (NOT ORD) 15.8 SEC (12.0-14.5)
[2016-08-17 10:04] LABS: A/G RATIO 0.6 (0.7-1.9); ALBUMIN 2.8 G/DL (3.5-5.0); ALKALINE PHOSPHATASE 59 U/L (45-117); BUN (BLOOD UREA NITROGEN) 8 MG/DL (6-23); CALCIUM, SERUM 9.4 MG/DL (8.5-10.4); CHLORIDE, SERUM 99 MMOL/L (96-112); CO2 (CARBON DIOXIDE) 28 MMOL/L (24-34); CREATININE 0.99 MG/DL (0.55-1.02); GFR AFRICAN AMERICAN 63 ML/MIN (>=60); GFR NON AFRICAN AMERICAN 55 ML/MIN (>=60); GLUCOSE, SERUM 91 MG/DL (60-99); POTASSIUM, SERUM 3.9 MMOL/L (3.5-5.3); SGOT(AST) 22 U/L (5-40); SGPT(ALT) 13 U/L (5-65); SODIUM, SERUM 135 MMOL/L (135-148); TOTAL BILIRUBIN 0.6 MG/DL (0-1.2); TOTAL PROTEIN 7.8 G/DL (6.0-8.5)
[2016-08-17 10:10] LABS: ASCORBIC ACID (UR NOT ORDER) NEG (NEG); BILIRUBIN, URINE NEGATIVE (NEG); ER URINALYSIS TAT 0 Hrs 13 Mins; KETONE, URINE TRACE MG/DL (NEG); LEUKOCYTE ESTERASE(NOT OR NEG (NEG); NITRITE (URINE) NEG (NEG); WBC (NOT ORDERED) (RFLEX) 1 (0-5)
[2016-08-17] MEDS ORDERED: NORCO1 TA1 PO (12:10)
[2016-08-17] MEDS ORDERED: VOLTAREN1 % TOP (12:10)
[2016-08-17] MEDS ORDERED: MAGNESIUM TOP (12:11)
[2016-08-17] MEDS ORDERED: PROTONIX PO (12:11)
[2016-08-17] MEDS ORDERED: MULTIVITAMI1 PO (12:11)
[2016-08-17] MEDS ORDERED: IMDUR60 PO (12:11)
[2016-08-18 04:01] LABS: BASOPHILS 0.6 %; BASOPHILS ABSOLUTE 0.02 10/3/uL (0.0-0.16); EOSINOPHILS 5.4 %; EOSINOPHILS ABSOLUTE 0.19 10/3/uL (0.0-0.53); HEMATOCRIT 22.1 % (36.0-48.0); HEMOGLOBIN 7.3 g/dL (12.0-16.0); IMMATURE GRANULOCYTES 0.9 %; IMMATURE GRANULOCYTES ABSOLUTE 0.03 10/3/uL (0.0-0.11); LYMPHOCYTES 32.7 %; LYMPHOCYTES ABSOLUTE 1.15 10/3/uL (0.67-4.30); MEAN CORPUSCULAR VOLUME 102.8 fL (80-100); MEAN PLATELET VOLUME 9.4 fL (9.2-13.0); MONOCYTES 16.8 %; MONOCYTES ABSOLUTE 0.59 10/3/uL (0.21-1.20); NEUTROPHILS 43.6 %; NEUTROPHILS ABSOLUTE 1.54 10/3/uL (2.02-8.40); PLATELET COUNT 162 10/3/uL (150-400); RBC DISTRIBUTION WIDTH 19.3 % (12.0-16.0); RED CELL COUNT 2.15 10/6/uL (4.0-5.6); WHITE BLOOD CELLS 3.5 10/3/uL (4.5-10.5)
[2016-08-18 04:02] LABS: MANUAL DIFF NO %
[2016-08-18 04:36] LABS: A/G RATIO 0.6 (0.7-1.9); ALBUMIN 2.6 G/DL (3.5-5.0); ALKALINE PHOSPHATASE 56 U/L (45-117); BUN (BLOOD UREA NITROGEN) 9 MG/DL (6-23); CALCIUM, SERUM 9.1 MG/DL (8.5-10.4); CHLORIDE, SERUM 105 MMOL/L (96-112); CO2 (CARBON DIOXIDE) 26 MMOL/L (24-34); CREATININE 0.93 MG/DL (0.55-1.02); FERRITIN 1013 NG/ML (8-252); FOLATE 13.8 NG/ML (>5.2); GFR AFRICAN AMERICAN 68 ML/MIN (>=60); GFR NON AFRICAN AMERICAN 59 ML/MIN (>=60); GLOBULIN 4.5 G/DL (2.5-4.1); GLUCOSE, SERUM 80 MG/DL (60-99); IRON BINDING CAPACITY 262 MCG/DL (225-410); IRON, SERUM 79 MCG/DL (35-150); POTASSIUM, SERUM 4.1 MMOL/L (3.5-5.3); SGOT(AST) 20 U/L (5-40); SGPT(ALT) 16 U/L (5-65); SODIUM, SERUM 141 MMOL/L (135-148); TOTAL BILIRUBIN 0.5 MG/DL (0-1.2); TOTAL PROTEIN 7.1 G/DL (6.0-8.5)
[2016-08-18 05:46] LABS: SED RATE 79 MM/HR (0-20)
[2016-08-18 10:53] LABS: T PROTEIN (ELECT)(NOT OR 7.1 G/DL (6.0-8.5)
[2016-08-20 09:20] LABS: BASOPHILS 0.9 %; BASOPHILS ABSOLUTE 0.03 10/3/uL (0.0-0.16); EOSINOPHILS 4.8 %; EOSINOPHILS ABSOLUTE 0.16 10/3/uL (0.0-0.53); IMMATURE GRANULOCYTES 1.2 %; IMMATURE GRANULOCYTES ABSOLUTE 0.04 10/3/uL (0.0-0.11); LYMPHOCYTES 28.2 %; LYMPHOCYTES ABSOLUTE 0.93 10/3/uL (0.67-4.30); MEAN CORPUS HGB CONC 33.9 g/dL (32.0-36.0); MEAN CORPUSCULAR HEMOGLOB 32.7 pg (26.0-34.0); MEAN PLATELET VOLUME 9.8 fL (9.2-13.0); MONOCYTES 12.7 %; MONOCYTES ABSOLUTE 0.42 10/3/uL (0.21-1.20); NEUTROPHILS 52.2 %; NEUTROPHILS ABSOLUTE 1.72 10/3/uL (2.02-8.40); PLATELET COUNT 151 10/3/uL (150-400); RBC DISTRIBUTION WIDTH 20.5 % (12.0-16.0); WHITE BLOOD CELLS 3.3 10/3/uL (4.5-10.5)
[2016-08-20 09:22] LABS: HEMATOCRIT 28.3 % (36.0-48.0); HEMOGLOBIN 9.6 g/dL (12.0-16.0); MANUAL DIFF NO %; MEAN CORPUSCULAR VOLUME 96.3 fL (80-100); RED CELL COUNT 2.94 10/6/uL (4.0-5.6)
[2016-08-21 11:03] LABS: A/G 0.92 RATIO (0.9-2.10); ABNORMAL PEAK 1 1.66 G/DL; ABNORMAL PEAK 1 % 23.4 % (0); ALB RELATIVE % 47.9 % (60.0-89.0); ALPHA 1 (ELECTRO) 0.27 GM/DL (0.1-0.4); ALPHA 1 RELAT % (NOT ORD) 3.8 % (1.0-4.0); ALPHA 2 (ELECTRO) 0.73 GM/DL (0.5-1.10); ALPHA 2 RELAT % 10.3 % (4.5-26.0); BETA GLOBULIN (SPE) 0.62 GM/DL (0.60-1.30); BETA RELATIVE % 8.8 % (9.0-22.0); GAMMA GLOBULIN (SPE) 2.07 G/DL (0.70-1.60); GAMMA RELAT % 29.2 % (6.0-22.0)
[2016-08-22 06:38] LABS: HEMATOCRIT 27.7 % (36.0-48.0); MEAN CORPUS HGB CONC 32.5 g/dL (32.0-36.0); MEAN CORPUSCULAR HEMOGLOB 32.3 pg (26.0-34.0); MEAN PLATELET VOLUME 10.3 fL (9.2-13.0); PLATELET COUNT 152 10/3/uL (150-400); RBC DISTRIBUTION WIDTH 19.5 % (12.0-16.0); RED CELL COUNT 2.79 10/6/uL (4.0-5.6)
[2016-08-22 06:39] LABS: MANUAL DIFF YES %; MEAN CORPUSCULAR VOLUME 99.3 fL (80-100)
[2016-08-22 06:49] LABS: BUN (BLOOD UREA NITROGEN) 10 MG/DL (6-23); CALCIUM, SERUM 10.1 MG/DL (8.5-10.4); CHLORIDE, SERUM 104 MMOL/L (96-112); CO2 (CARBON DIOXIDE) 27 MMOL/L (24-34); GFR AFRICAN AMERICAN 82 ML/MIN (>=60); GFR NON AFRICAN AMERICAN 71 ML/MIN (>=60); GLUCOSE, SERUM 83 MG/DL (60-99); POTASSIUM, SERUM 4.2 MMOL/L (3.5-5.3); SODIUM, SERUM 140 MMOL/L (135-148)
[2016-08-22 07:09] LABS: BAND NEUTROPHILS 1 %; BASOPHILS 1 %; BASOPHILS ABSOLUTE (CALC) 0.03 10/3/uL (0.0-0.16); EOSINOPHILS 4 %; EOSINOPHILS ABSOLUTE (CALC) 0.12 10/3/uL (0.0-0.53); HYPOCHROMIA 1+ (3-10/OIF) (0-2/OIF); IMMATURE GRANS ABSOLUTE (CALC) 0.06 10/3/uL (0.0-0.11); LYMPHOCYTES 35 %; LYMPHOCYTES ABSOLUTE (CALC) 1.05 10/3/uL (0.67-4.30); MACROCYTES 1+ (5-10/OIF) (0-5/OIF); METAMYELOCYTES 2 %; MONOCYTES 20 %; NEUTROPHILS ABSOLUTE (CALC) 1.14 10/3/uL (2.02-8.40); OVALOCYTES 1+ (3-10/OIF) (0-2/OIF); PLATELET ESTIMATE ADQ (ADEQUATE); SEGMENTED NEUTROPHIL (0) 37 %; TOTAL NUCLEATED CELLS 100
[2016-08-22 07:10] LABS: TEARDROP SHAPED RBCS OCC (0-2/OIF)
[2016-08-23 05:14] LABS: HEMATOCRIT 26.9 % (36.0-48.0); HEMOGLOBIN 8.8 g/dL (12.0-16.0); MEAN CORPUS HGB CONC 32.7 g/dL (32.0-36.0); MEAN CORPUSCULAR HEMOGLOB 32.4 pg (26.0-34.0); MEAN CORPUSCULAR VOLUME 98.9 fL (80-100); MEAN PLATELET VOLUME 9.8 fL (9.2-13.0); PLATELET COUNT 131 10/3/uL (150-400); RBC DISTRIBUTION WIDTH 19.5 % (12.0-16.0); RED CELL COUNT 2.72 10/6/uL (4.0-5.6); WHITE BLOOD CELLS 2.6 10/3/uL (4.5-10.5)
[2016-08-23 05:16] LABS: MANUAL DIFF YES %
[2016-08-23 06:07] LABS: BAND NEUTROPHILS 1 %; LYMPHOCYTES 38 %; LYMPHOCYTES ABSOLUTE (CALC) 0.99 10/3/uL (0.67-4.30); METAMYELOCYTES 3 %; MONOCYTES ABSOLUTE (CALC) 0.13 10/3/uL (0.21-1.20); MYELOCYTES 1 %; NEUTROPHILS ABSOLUTE (CALC) 1.38 10/3/uL (2.02-8.40); TOTAL NUCLEATED CELLS 100
[2016-08-23 06:08] LABS: ANISOCYTOSIS 1+ (5-10/OIF) (0-5/OIF); MONOCYTES 15 %; PLATELET ESTIMATE SLT DEC (ADEQUATE); SEGMENTED NEUTROPHIL (0) 42 %
[2016-08-23 10:08] LABS: RETICULOCYTE COUNT 2.2 % (0.5-2.9); RETICULOCYTE COUNT ABSOLUTE 58.6 10/3/uL (20.2-119.8)
[2016-08-23 20:40] LABS: BETA 2 MICROGLOBULIN 13.8 MG/L (1.09-2.53); IMMUNOGLOBULIN A < 8 MG/DL (70-420); IMMUNOGLOBULIN G 1370 MG/DL (673-1464); IMMUNOGLOBULIN M < 5 MG/DL (30-270)
[2016-08-24 03:27] LABS: BASOPHILS 0.6 %; BASOPHILS ABSOLUTE 0.02 10/3/uL (0.0-0.16); EOSINOPHILS 3.4 %; EOSINOPHILS ABSOLUTE 0.12 10/3/uL (0.0-0.53); HEMATOCRIT 25.8 % (36.0-48.0); HEMOGLOBIN 8.6 g/dL (12.0-16.0); IMMATURE GRANULOCYTES 0.6 %; IMMATURE GRANULOCYTES ABSOLUTE 0.02 10/3/uL (0.0-0.11); LYMPHOCYTES 36.8 %; LYMPHOCYTES ABSOLUTE 1.31 10/3/uL (0.67-4.30); MANUAL DIFF NO %; MEAN CORPUS HGB CONC 33.3 g/dL (32.0-36.0); MEAN CORPUSCULAR HEMOGLOB 32.8 pg (26.0-34.0); MEAN CORPUSCULAR VOLUME 98.5 fL (80-100); MONOCYTES 17.7 %; MONOCYTES ABSOLUTE 0.63 10/3/uL (0.21-1.20); NEUTROPHILS 40.9 %; NEUTROPHILS ABSOLUTE 1.46 10/3/uL (2.02-8.40); PLATELET COUNT 129 10/3/uL (150-400); RBC DISTRIBUTION WIDTH 19.2 % (12.0-16.0); RED CELL COUNT 2.62 10/6/uL (4.0-5.6); WHITE BLOOD CELLS 3.6 10/3/uL (4.5-10.5)
[2016-08-24 03:39] LABS: BUN (BLOOD UREA NITROGEN) 11 MG/DL (6-23); CALCIUM, SERUM 9.4 MG/DL (8.5-10.4); CHLORIDE, SERUM 100 MMOL/L (96-112); CO2 (CARBON DIOXIDE) 27 MMOL/L (24-34); CREATININE 0.95 MG/DL (0.55-1.02); GFR AFRICAN AMERICAN 66 ML/MIN (>=60); GFR NON AFRICAN AMERICAN 57 ML/MIN (>=60); POTASSIUM, SERUM 4.2 MMOL/L (3.5-5.3); SODIUM, SERUM 135 MMOL/L (135-148)
[2016-08-24 03:41] LABS: GLUCOSE, SERUM 115 MG/DL (60-99)
[2016-08-24 17:30] LABS: T.V. 24HR UR 1100 ML/24HR (600-1600)
[2016-08-24 17:53] LABS: TOTAL PROTEIN URINE 258.4 MG/DL
[2016-08-24 20:21] LABS: BASOPHILS 0.5 %; BASOPHILS ABSOLUTE 0.02 10/3/uL (0.0-0.16); EOSINOPHILS 2.1 %; EOSINOPHILS ABSOLUTE 0.09 10/3/uL (0.0-0.53); HEMOGLOBIN 7.7 g/dL (12.0-16.0); IMMATURE GRANULOCYTES 0.7 %; IMMATURE GRANULOCYTES ABSOLUTE 0.03 10/3/uL (0.0-0.11); LYMPHOCYTES 38.4 %; LYMPHOCYTES ABSOLUTE 1.62 10/3/uL (0.67-4.30); MEAN CORPUS HGB CONC 33.3 g/dL (32.0-36.0); MEAN CORPUSCULAR HEMOGLOB 32.8 pg (26.0-34.0); MEAN CORPUSCULAR VOLUME 98.3 fL (80-100); MEAN PLATELET VOLUME 9.5 fL (9.2-13.0); MONOCYTES 10.7 %; MONOCYTES ABSOLUTE 0.45 10/3/uL (0.21-1.20); NEUTROPHILS 47.6 %; NEUTROPHILS ABSOLUTE 2.01 10/3/uL (2.02-8.40); PLATELET COUNT 121 10/3/uL (150-400); RBC DISTRIBUTION WIDTH 19.1 % (12.0-16.0); RED CELL COUNT 2.35 10/6/uL (4.0-5.6); WHITE BLOOD CELLS 4.2 10/3/uL (4.5-10.5)
[2016-08-24 20:23] LABS: HEMATOCRIT 23.1 % (36.0-48.0); MANUAL DIFF NO %
[2016-08-24 20:31] LABS: BUN (BLOOD UREA NITROGEN) 8 MG/DL (6-23); CALCIUM, SERUM 8.9 MG/DL (8.5-10.4); CHLORIDE, SERUM 104 MMOL/L (96-112); CO2 (CARBON DIOXIDE) 24 MMOL/L (24-34); CREATININE 0.77 MG/DL (0.55-1.02); GFR AFRICAN AMERICAN 86 ML/MIN (>=60); GFR NON AFRICAN AMERICAN 74 ML/MIN (>=60); SODIUM, SERUM 137 MMOL/L (135-148)
[2016-08-24 20:32] LABS: GLUCOSE, SERUM 145 MG/DL (60-99)
[2016-08-25 04:37] LABS: BASOPHILS 0.3 %; BASOPHILS ABSOLUTE 0.02 10/3/uL (0.0-0.16); EOSINOPHILS 0.5 %; EOSINOPHILS ABSOLUTE 0.03 10/3/uL (0.0-0.53); HEMATOCRIT 21.9 % (36.0-48.0); HEMOGLOBIN 7.4 g/dL (12.0-16.0); IMMATURE GRANULOCYTES 0.5 %; IMMATURE GRANULOCYTES ABSOLUTE 0.03 10/3/uL (0.0-0.11); LYMPHOCYTES ABSOLUTE 0.98 10/3/uL (0.67-4.30); MEAN CORPUS HGB CONC 33.8 g/dL (32.0-36.0); MEAN CORPUSCULAR VOLUME 97.8 fL (80-100); MEAN PLATELET VOLUME 9.8 fL (9.2-13.0); MONOCYTES 10.6 %; MONOCYTES ABSOLUTE 0.65 10/3/uL (0.21-1.20); NEUTROPHILS 72.1 %; NEUTROPHILS ABSOLUTE 4.42 10/3/uL (2.02-8.40); PLATELET COUNT 124 10/3/uL (150-400); RED CELL COUNT 2.24 10/6/uL (4.0-5.6)
[2016-08-25 04:39] LABS: MANUAL DIFF NO %; WHITE BLOOD CELLS 6.1 10/3/uL (4.5-10.5)
[2016-08-25 04:50] LABS: BUN (BLOOD UREA NITROGEN) 10 MG/DL (6-23); CHLORIDE, SERUM 102 MMOL/L (96-112); CO2 (CARBON DIOXIDE) 27 MMOL/L (24-34); CREATININE 0.99 MG/DL (0.55-1.02); GFR AFRICAN AMERICAN 63 ML/MIN (>=60); GFR NON AFRICAN AMERICAN 55 ML/MIN (>=60); GLUCOSE, SERUM 232 MG/DL (60-99); POTASSIUM, SERUM 4.8 MMOL/L (3.5-5.3); SODIUM, SERUM 135 MMOL/L (135-148)
[2016-08-26 04:51] LABS: BASOPHILS 0.3 %; BASOPHILS ABSOLUTE 0.01 10/3/uL (0.0-0.16); EOSINOPHILS 1.2 %; EOSINOPHILS ABSOLUTE 0.04 10/3/uL (0.0-0.53); HEMOGLOBIN 8.5 g/dL (12.0-16.0); IMMATURE GRANULOCYTES 0.6 %; IMMATURE GRANULOCYTES ABSOLUTE 0.02 10/3/uL (0.0-0.11); LYMPHOCYTES 26.5 %; LYMPHOCYTES ABSOLUTE 0.91 10/3/uL (0.67-4.30); MEAN CORPUS HGB CONC 34.1 g/dL (32.0-36.0); MEAN CORPUSCULAR HEMOGLOB 32.4 pg (26.0-34.0); MEAN PLATELET VOLUME 9.7 fL (9.2-13.0); MONOCYTES 18.9 %; MONOCYTES ABSOLUTE 0.65 10/3/uL (0.21-1.20); NEUTROPHILS 52.5 %; NEUTROPHILS ABSOLUTE 1.81 10/3/uL (2.02-8.40); PLATELET COUNT 101 10/3/uL (150-400); RBC DISTRIBUTION WIDTH 19.6 % (12.0-16.0); RED CELL COUNT 2.62 10/6/uL (4.0-5.6)
[2016-08-26 04:52] LABS: HEMATOCRIT 24.9 % (36.0-48.0); MANUAL DIFF NO %; WHITE BLOOD CELLS 3.4 10/3/uL (4.5-10.5)
[2016-08-26 05:03] LABS: BUN (BLOOD UREA NITROGEN) 9 MG/DL (6-23); CALCIUM, SERUM 8.6 MG/DL (8.5-10.4); CHLORIDE, SERUM 104 MMOL/L (96-112); CO2 (CARBON DIOXIDE) 29 MMOL/L (24-34); CREATININE 0.87 MG/DL (0.55-1.02); GFR AFRICAN AMERICAN 74 ML/MIN (>=60); GFR NON AFRICAN AMERICAN 64 ML/MIN (>=60); GLUCOSE, SERUM 105 MG/DL (60-99); POTASSIUM, SERUM 4.3 MMOL/L (3.5-5.3); SODIUM, SERUM 137 MMOL/L (135-148)
[2016-08-27 06:28] LABS: ASCORBIC ACID (UR NOT ORDER) NEG (NEG); BILIRUBIN, URINE NEGATIVE (NEG); KETONE, URINE NEGATIVE (NEG); LEUKOCYTE ESTERASE(NOT OR NEG (NEG); WBC (NOT ORDERED) (RFLEX) 2 (0-5)
[2016-08-27 12:33] LABS: ABNORMAL PROTEIN % 80 % (<0); ABNORMAL PROTEIN MG/24HR 2276 MG/24 HR; ABNORMAL PROTEIN MG/DL 206.9 MG/DL (<0); ALBUMIN RELAT % 6.9 %
[2016-12-20] MEDS ORDERED: PRIN20 PO (22:35)
[2016-12-20] MEDS ORDERED: REVLIMID10 MG PO (22:35)
[2016-12-20] MEDS ORDERED: BUSPAR5 PO (22:36)
[2016-12-20] MEDS ORDERED: OXYCON10 PO (22:36)
[2016-12-20] MEDS ORDERED: PCET PO (22:36)
[2016-12-20] MEDS ORDERED: PROTONIX PO (22:37)
[2016-12-20] MEDS ORDERED: MULTIVIT/MIN PO (22:37)
[2016-12-20] MEDS ORDERED: VOLTAREN1 % TOP (22:37)
== END 2016-08-28 19:53 | DRG 824 ==
LOC: ER 09:40 → CDU1 15:32 → CDU2 17:05 → 4EA 08-18 09:56 → 3SO 08-24 21:43
PROVIDERS: Internal Medicine; Internal Medicine Hematology & Oncology; Nurse Practitioner Acute Care; Nurse Practitioner Family; Orthopaedic Surgery
PROC: 0SG10Z1 (ICD-10-PCS; principal; 2016-08-17)
PROC: 4A11X4G Monitoring of Peripheral Nervous Electrical Activity, Intraoperative, External Approach (ICD-10-PCS; 2016-08-17)
PROC: 30233N1 Transfusion of Nonautologous Red Blood Cells into Peripheral Vein, Percutaneous Approach (ICD-10-PCS; 2016-08-19)
DX: C90.00 Multiple myeloma not having achieved remission (principal); D62 Acute posthemorrhagic anemia; D64.9 Anemia, unspecified; M48.06 Spinal stenosis, lumbar region; M81.0 Age-related osteoporosis without current pathological fracture; I10 Essential (primary) hypertension; K21.9 Gastro-esophageal reflux disease without esophagitis
CPT/HCPCS: 36415; 71010; 72131; 73700-LT; 78306; 80048; 80053; 81001; 82232; 82607; 82728; 82746; 82784; 82962; 83540; 83550; 84155; 84156; 84165; 84166; 85025; 85045; 85610; 85652; 85730; 86140; 86334; 86335; 86850; 86900; 86901; 86920; 87641; 88304; 88305; 88311; 88313; 88360; 93005; 96374; 96375; 97110-GP; 97116-GP; 97161-GP; 97164-GP; 97530-GP; 99285; A9270-GY; A9561; C1713; G8978-CJ-GP; G8978-CL-GP; G8979-CI-GP; G8979-CJ-GP; J0360; J1170; J1580; J1644; J1885; J2270; J2370; J2405; J2710; J3010; J3370; P9016